=== PATIENT | female | born 1995 | race Caucasian/White ===

== ENCOUNTER 2016-07-10 02:00 | Emergency (ER) | payer OTHER ==
[2016-07-10 02:01] VITALS: BMI 22.4
[2016-07-10] MEDS ORDERED: Aluminum Hydroxide/Magnesium Hydroxide Susp (30 mL) PO STA (02:39)
[2016-07-10] MEDS ORDERED: Aluminum Hydroxide/Magnesium Hydroxide Susp (30 mL) ONE (02:44)
--- NOTE | 2016-07-10 02:52 | C.PDOC ---
History Of Present Illness <Janett Cruz - Last Filed: 07/10/16 07:03> <Cecelia Aguilar - Last Filed: 07/10/16 08:53> 20 y/o female presents to ED with complaint of generalized abdominal pain and states she feels like she has heartburn, with noted acidic taste in her mouth. Patient also reports associated nausea, with 1 episode of vomiting earlier today , and several episodes of loose stools. Patient describes that her belly "feels big". Denies fever, chills, urinary symptoms, or other complaints. Patient also complains of lower back pain. Denies trauma, fall, new weakness, new numbness, or other complaints. (MirandaviniciusConradJanett garcia) Patient currently resting comfortably, wants to be discharged home. On exam, abdomen is soft and nontender. CT scan unremarkable. Patient given Rx for pepcid and instructed to follow up with PMD/clinic in 1-2 days. She understands she should return to ED if symptoms worsen. Accession No. : [id number] Patient Name / ID : MARYANNE OLIVAS / [id number] Exam Date : 07/10/2016 06:55:46 ( Approved ) Study Comment : Sex / Age : F / 20Y Creator : tomas parham Dictator : Unruly Lindsey MD [employer] Manager : Hand Carver : Unruly Lindsey MD Approver2 : Report Date : 07/10/2016 08:34:08 My Comment : This report is currently processing and HAS NOT BEEN OFFICIALLY SIGNED BY THE PHYSICIAN - ESTIMATED TIME OF APPROVAL IS 07/10/2016 08:54. PROCEDURE: CT Abdomen and Pelvis with contrast HISTORY: diffuse Abd Pain COMPARISON: 09/17/2015 TECHNIQUE: Contrast dose: 100 mL Visipaque 320 Radiation dose: Total exam DLP = 338.27 mGy-cm. FINDINGS: LOWER THORAX: Unremarkable. LIVER: Unremarkable. No gross lesion or ductal dilatation. GALLBLADDER AND BILE DUCTS: Unremarkable. PANCREAS: Unremarkable. No gross lesion or ductal dilatation. SPLEEN: Unremarkable. ADRENALS: Unremarkable. No mass. KIDNEYS AND URETERS: Focal scar upper pole left kidney, unchanged. Nonspecific. No mass, calculus or hydronephrosis. VASCULATURE: Unremarkable. No aortic aneurysm. BOWEL: Unremarkable. No obstruction. No gross mural thickening. APPENDIX: Normal appendix. PERITONEUM: Unremarkable. No free fluid. No free air. LYMPH NODES: Unremarkable. No enlarged lymph nodes. BLADDER: Unremarkable. REPRODUCTIVE: Normal uterus BONES: No acute fracture. OTHER FINDINGS: None. IMPRESSION: Unremarkable contrast enhanced CT of the abdomen and pelvis. Incidental old cortical scar upper pole left kidney. (Cecleia Aguilar) History Per: Patient History/Exam Limitations: no limitations Onset/Duration Of Symptoms: Days Current Symptoms Are (Timing): Still Present Location Of Pain/Discomfort: Diffuse Radiation Of Pain To:: None Quality Of Discomfort: "Pain" Associated Symptoms: Vomiting, Back Pain, Other (loose stools). denies: Fever, Urinary Symptoms Recent travel outside of the [place]: No <Janett Cruz - Last Filed: 07/10/16 07:03> <Cecelia Aguilar - Last Filed: 07/10/16 08:53> Time Seen by Provider: 07/10/16 02:20 Chief Complaint (Nursing): Abdominal Pain Past Medical History Reviewed: Historical Data, Nursing Documentation, Vital Signs - Medical History PMH: Anemia Family History: States: Unknown Family Hx - Social History Hx Alcohol Use: No Hx Substance Use: No - Immunization History Hx Tetanus Toxoid Vaccination: No Hx Influenza Vaccination: Yes Hx Pneumococcal Vaccination: No <Janett Cruz - Last Filed: 07/10/16 07:03> Vital Signs: Last Vital Signs Temp 98.7 F 07/10/16 07:22 Pulse 86 07/10/16 07:22 Resp 18 07/10/16 07:22 BP 100/68 07/10/16 07:22 Pulse Ox 100 07/10/16 07:22 Review Of Systems Except As Marked, All Systems Reviewed And Found Negative. Constitutional: Negative for: Fever, Chills Gastrointestinal: Positive for: Vomiting, Abdominal Pain Genitourinary: Negative for: Dysuria Skin: Negative for: Rash <Janett Cruz - Last Filed: 07/10/16 07:03> Physical Exam - Physical Exam Appears: Non-toxic, No Acute Distress Skin: Normal Color, Warm, Dry Head: Atraumatic, Normacephalic Oral Mucosa: Moist Chest: Symmetrical Cardiovascular: Rhythm Regular Respiratory: Normal Breath Sounds, No Rales, No Rhonchi, No Wheezing Gastrointestinal/Abdominal: Soft, Tenderness (minimal epigastric), No Distention , No Guarding, No Rebound Back: No CVA Tenderness Extremity: Normal ROM, Capillary Refill (< 2 sec. ) Neurological/Psych: Oriented x3, Normal Speech, Normal Cognition <Janett Cruz - Last Filed: 07/10/16 07:03> ED Course And Treatment - Laboratory Results Result Diagrams: 07/10/16 02:58 07/10/16 02:58 O2 Sat by Pulse Oximetry: 99 (RA) Pulse Ox Interpretation: Normal Progress Note: Treated with Maalox, Zofran, and Pepcid. Labs ordered and reviewed. <Janett Cruz - Last Filed: 07/10/16 07:03> - Laboratory Results Result Diagrams: 07/10/16 02:58 07/10/16 02:58 <Cecelia Aguilar - Last Filed: 07/10/16 08:53> Disposition - Disposition Disposition Time: 07:03 <Janett Cruz - Last Filed: 07/10/16 07:03> Counseled Patient/Family Regarding: Studies Performed, Diagnosis, Need For Followup, Rx Given - Disposition Disposition Time: 08:50 - POA Present On Arrival: None <Cecelia Aguilar - Last Filed: 07/10/16 08:53> - Disposition Referrals: at [facility] [Outside] Disposition: HOME/ ROUTINE Condition: STABLE Additional Instructions: SEGUIMIENTO CON THOMAS DOCTOR / CLNICA EN 1-2 VÁSQUEZ USE MEDICAMENTOS JERAMY NECESITA EVITE LOS ALIMENTOS PICANTE / ACIDICOS DEVUELVA A LA EZIO DE EMERGENCIA SI LOS SNTOMAS EMPEORARAN Prescriptions: Famotidine [Pepcid] 20 mg PO BID PRN #20 tab PRN Reason: abdominal Instructions: Epigastric Pain (ED) Print Language: POLISH - Clinical Impression Clinical Impression: Abdominal pain, Dyspepsia - 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 - Scribe Statement The provider has reviewed the documentation as recorded by the Scribe <Janett Cruz - Last Filed: 07/10/16 07:03> <Cecelia Aguilar - Last Filed: 07/10/16 08:53> - Scribe Statement Jerman Pena Provider Scribe Attestation: All medical record entries made by the Scribe were at my direction and personally dictated by me. I have reviewed the chart and agree that the record accurately reflects my personal performance of the history, physical exam, medical decision making, and the department course for this patient. I have also personally directed, reviewed, and agree with the discharge instructions and disposition. (Janett Cruz) Physician Patient Turnover Patient Signed Over To: Cecelia Aguilar Handoff Comments: Pending Abd CT results and reevaluation <Janett Cruz - Last Filed: 07/10/16 07:03>
[2016-07-10 03:03] LABS: BASO % 0.2 % (0.0-2.0); EOS # 0.1 K/uL (0.0-0.7); EOS % 0.7 % (0.0-4.0); HEMATOCRIT 39.3 % (34.0-47.0); LYMPH % 13.9 % (20.0-40.0); MEAN CELL VOLUME 64.9 fL (81.0-99.0); MEAN CORPUSCULAR HGB CONC 30.8 g/dL (33.0-37.0); MEAN PLATELET VOLUME 9.3 fL (7.2-11.7); MONO # 1.3 K/uL (0.0-0.8); MONO % 8.5 % (0.0-10.0); RED CELL DISTRIBUTION WIDTH 14.8 % (11.5-14.5); WHITE BLOOD COUNT 14.8 K/uL (4.8-10.8)
[2016-07-10 03:08] LABS: CHLORIDE 103 mmol/L (98-107); POTASSIUM 3.7 mmol/L (3.6-5.2); SODIUM 141 mmol/L (132-148)
[2016-07-10 03:11] LABS: ALB/GLOB RATIO 1.3 (1.0-2.1); ALKALINE PHOSPHATASE 74 U/L (38-126); ALT/SGPT 28 U/L (9-52); AST/SGOT 20 U/L (14-36); BILIRUBIN,TOTAL 0.5 mg/dL (0.2-1.3); BLOOD UREA NITROGEN 16 mg/dL (7-17); CALCIUM 9.3 mg/dl (8.6-10.4); CARBON DIOXIDE 25 mmol/L (22-30); GFR AFRICAN-AMERICAN > 60; GLUCOSE,RANDOM 99 mg/dL (65-105); TOTAL PROTEIN 7.4 g/dL (6.3-8.3)
[2016-07-10 04:49] LABS: URINE BILIRUBIN NEGATIVE (NEGATIVE); URINE BLOOD NEGATIVE (NEGATIVE); URINE COLOR Straw (YELLOW); URINE GLUCOSE (UA) NORMAL (Normal); URINE KETONE NEGATIVE (NEGATIVE); URINE LEUKOCYTE ESTERASE NEG Leu/uL (Negative); URINE PROTEIN NEGATIVE (NEGATIVE); URINE UROBILINOGEN NORMAL mg/dL (0.2-1.0); WBC URINE < 1 /hpf (0-5)
[2016-07-10] MEDS ORDERED: Iohexol 240 (50 ml) PO ONE (05:13)
[2016-07-10] MEDS ORDERED: Iohexol 240 (50 ml) ONE (05:21)
[2016-07-10] MEDS ORDERED: Iodixanol 320 mg/ml 150 ml Bottle IV ONE (06:33)
[2016-07-10 07:23] VITALS: O2SAT 100
--- NOTE | 2016-07-10 08:50 | CT ---
PROCEDURE: CT Abdomen and Pelvis with contrast HISTORY: diffuse Abd Pain COMPARISON: 09/17/2015 TECHNIQUE: Contrast dose: 100 mL Visipaque 320 Radiation dose: Total exam DLP = 338.27 mGy-cm. FINDINGS: LOWER THORAX: Unremarkable. LIVER: Unremarkable. No gross lesion or ductal dilatation. GALLBLADDER AND BILE DUCTS: Unremarkable. PANCREAS: Unremarkable. No gross lesion or ductal dilatation. SPLEEN: Unremarkable. ADRENALS: Unremarkable. No mass. KIDNEYS AND URETERS: Focal scar upper pole left kidney, unchanged. Nonspecific. No mass, calculus or hydronephrosis. VASCULATURE: Unremarkable. No aortic aneurysm. BOWEL: Unremarkable. No obstruction. No gross mural thickening. APPENDIX: Normal appendix. PERITONEUM: Unremarkable. No free fluid. No free air. LYMPH NODES: Unremarkable. No enlarged lymph nodes. BLADDER: Unremarkable. REPRODUCTIVE: Normal uterus BONES: No acute fracture. OTHER FINDINGS: None. IMPRESSION: Unremarkable contrast enhanced CT of the abdomen and pelvis. Incidental old cortical scar upper pole left kidney.
[2016-07-10 08:52] VITALS: BP 99/68; PULSE 81; RESP 20; TEMP 98.6
== END 2016-07-10 09:02 | disposition home or self-care (01) ==
LOC: C.ER 02:00 → SUPCPDRO 02:00 → C.ER 09:02
DX: R10.13 Epigastric pain (principal)
CPT/HCPCS: 74177; 80053; 81001; 83690; 84703; 85025; 96374; 96375; 99285; J1885; J2405; Q9965; Q9966

== ENCOUNTER 2017-08-01 09:49 | Emergency (ER) | payer MEDICAID, OTHER ==
[2017-08-01 09:50] VITALS: BMI 22.4
--- NOTE | 2017-08-01 10:49 | C.PDOC ---
History Of Present Illness 21 y/o female with history of Gastritis presents to ED with complaints of epigastric burning pain radiating to chest associated with bad taste in mouth, worse after eating this morning. Patient states symptoms feel like prior episodes of gastritis, (diagnosed by endoscopy), and had been on Omeprazole in past until resolved. pt reports recent back pain being treated with Naproxen , stopped one week ago. At ED, patient states she has not taken any medication , but pain has decreased somewhat on its own. . Patient reports last bowel movement today and denies n/v/d, fever, dysuria, hematuria or any other complaints at this time. Time Seen by Provider: 08/01/17 10:03 Chief Complaint (Nursing): Abdominal Pain History Per: Patient History/Exam Limitations: no limitations Onset/Duration Of Symptoms: Days Current Symptoms Are (Timing): Still Present Location Of Pain/Discomfort: Epigastric Past Medical History Reviewed: Historical Data, Nursing Documentation, Vital Signs Vital Signs: Last Vital Signs Temp 98.3 F 08/01/17 17:30 Pulse 76 08/01/17 17:30 Resp 18 08/01/17 17:30 BP 107/72 08/01/17 17:30 Pulse Ox 99 08/02/17 13:51 - Medical History PMH: Anemia Surgical History: No Surg Hx Family History: States: No Known Family Hx - Social History Hx Alcohol Use: No Hx Substance Use: No - Immunization History Hx Tetanus Toxoid Vaccination: No Hx Influenza Vaccination: Yes Hx Pneumococcal Vaccination: No Review Of Systems Constitutional: Negative for: Fever, Chills Cardiovascular: Negative for: Chest Pain Respiratory: Negative for: Shortness of Breath Gastrointestinal: Positive for: Abdominal Pain. Negative for: Nausea, Vomiting , Diarrhea Genitourinary: Negative for: Dysuria Skin: Negative for: Rash Neurological: Negative for: Weakness, Numbness Physical Exam - Physical Exam Appears: Non-toxic, No Acute Distress Skin: Warm, Dry, No Rash Head: Atraumatic, Normacephalic Eye(s): bilateral: Normal Inspection Oral Mucosa: Moist Neck: Normal ROM, Supple Cardiovascular: Rhythm Regular Respiratory: Normal Breath Sounds, No Rales, No Rhonchi, No Wheezing Gastrointestinal/Abdominal: Soft, Tenderness (Epigastric and LUQ), No Guarding, No Rebound Back: No CVA Tenderness Extremity: Normal ROM, Capillary Refill (<2 seconds) Neurological/Psych: Oriented x3, Normal Speech, Normal Cognition ED Course And Treatment - Laboratory Results Result Diagrams: 08/01/17 12:18 08/01/17 11:00 O2 Sat by Pulse Oximetry: 99 (RA) Pulse Ox Interpretation: Normal Medical Decision Making Medical Decision Making: Plan: Blood work, UA ordered 1228 pm pt initially arrived with epigastric pain after eating, siimilar to gastritis in past. pt wiht tenderness in epigastric area only on initial exam. initial wbc 15.6, with trace hematuria, rest normal; possible demargination. pt given protonix and reports pain decreased; wbc redrawn and now increased to 17.6; pt with llq pain, will get ct scan to eval for intra-abdominal pathology. 454 pm pt with abdomen ct neg for pathology, noted 2 non obstructive upper pole left kidney stones. will d/c with protonix, f/u med clinic, with gi and heme/onc out pt f/u. explained to pt that wbc elevated for unclear reason and should f/u with hematologyfor further evaluation. pt understands. Disposition Counseled Patient/Family Regarding: Studies Performed, Diagnosis, Need For Followup, Rx Given - Disposition Referrals: Cyndee Lundberg MD [Staff Provider] - Yann Fagan MD [Staff Provider] - [facility] [Outside] Disposition: HOME/ ROUTINE Disposition Time: 16:57 Condition: IMPROVED Additional Instructions: Por favor, siga con mdicos clnicos, gastroenterlogos y hematlogos. Call recuento de glbulos blancos es elevado y necesita ms investigacin. Evite motrin / advil / ibuprofeno / aleve y naproxeno; no son buenos para call est blessing. [place] pantoprozole segn lo prescrito. Regrese a la chana de emergencias por cualquier sntoma peor. 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 - Scribe Statement The provider has reviewed the documentation as recorded by the Scribe Gerald Le All medical record entries made by the Shirinibamberly were at my direction and personally dictated by me. I have reviewed the chart and agree that the record accurately reflects my personal performance of the history, physical exam, medical decision making, and the department course for this patient. I have also personally directed, reviewed, and agree with the discharge instructions and disposition.
[2017-08-01 11:06] LABS: BASO % 0.2 % (0.0-2.0); EOS # 0.1 K/uL (0.0-0.7); EOS % 0.4 % (0.0-4.0); LYMPH # 2.4 K/uL (1.0-4.3); LYMPH % 15.3 % (20.0-40.0); MEAN CELL VOLUME 64.7 fL (81.0-99.0); MEAN CORPUSCULAR HEMOGLOBIN 20.8 pg (27.0-31.0); MEAN CORPUSCULAR HGB CONC 32.1 g/dL (33.0-37.0); MEAN PLATELET VOLUME 8.3 fL (7.2-11.7); MONO # 1.1 K/uL (0.0-0.8); MONO % 7.2 % (0.0-10.0); NEUT % 76.9 % (50.0-75.0); RBC 5.78 Mil/uL (3.80-5.20); RED CELL DISTRIBUTION WIDTH 15.4 % (11.5-14.5); WHITE BLOOD COUNT 15.6 K/uL (4.8-10.8)
[2017-08-01] MEDS ORDERED: Pantoprazole 40 mg EC Tab PO STA (11:16)
[2017-08-01 11:20] LABS: ALB/GLOB RATIO 1.1 (1.0-2.1); ALT/SGPT 18 U/L (9-52); AST/SGOT 20 U/L (14-36); BLOOD UREA NITROGEN 16 mg/dL (7-17); GFR AFRICAN-AMERICAN > 60; GFR NON-AFRICAN AMERICAN > 60; LIPASE 91 U/L (23-300)
[2017-08-01] MEDS ORDERED: Pantoprazole 40 mg EC Tab PO ONE (11:24)
[2017-08-01 11:26] LABS: SQUAMOUS EPITHIAL 9 /hpf (0-5); URINE BACTERIA RARE (<OCC); URINE BILIRUBIN NEGATIVE (NEGATIVE); URINE BLOOD 2+ (NEGATIVE); URINE CLARITY Hazy (Clear); URINE COLOR Yellow (YELLOW); URINE GLUCOSE (UA) NORMAL (Normal); URINE LEUKOCYTE ESTERASE NEG Leu/uL (Negative); URINE PROTEIN NEGATIVE (NEGATIVE); URINE UROBILINOGEN NORMAL mg/dL (0.2-1.0)
[2017-08-01 12:22] LABS: BASO % 0.2 % (0.0-2.0); EOS # 0.1 K/uL (0.0-0.7); EOS % 0.4 % (0.0-4.0); HEMOGLOBIN 12.1 g/dL (11.0-16.0); LYMPH # 2.5 K/uL (1.0-4.3); LYMPH % 13.9 % (20.0-40.0); MEAN CELL VOLUME 65.3 fL (81.0-99.0); MEAN CORPUSCULAR HEMOGLOBIN 21.1 pg (27.0-31.0); MEAN CORPUSCULAR HGB CONC 32.3 g/dL (33.0-37.0); MEAN PLATELET VOLUME 8.5 fL (7.2-11.7); MONO % 5.8 % (0.0-10.0); NEUT # 14.1 K/uL (1.8-7.0); NEUT % 79.7 % (50.0-75.0); NRBC % 0.1 % (0.0-2.0); RBC 5.74 Mil/uL (3.80-5.20); RED CELL DISTRIBUTION WIDTH 15.9 % (11.5-14.5); WHITE BLOOD COUNT 17.6 K/uL (4.8-10.8)
[2017-08-01] MEDS ORDERED: Sodium Chloride 0.9% 1,000 ML IV ONE (12:33)
[2017-08-01] MEDS ORDERED: Sodium Chloride 0.9% 1,000 ML ONE (12:58)
[2017-08-01] MEDS ORDERED: Iohexol 240 (50 ml) PO ONE (14:07)
[2017-08-01] MEDS ORDERED: Iohexol 240 (50 ml) ONE (14:22)
[2017-08-01] MEDS ORDERED: Iodixanol 320 MG/ML 100 ML BOTTLE IV ONE (15:52)
[2017-08-01 16:29] VITALS: RESP 18
--- NOTE | 2017-08-01 16:45 | CT ---
PROCEDURE: CT Abdomen and Pelvis with contrast HISTORY: lower ab pain, leucocytosis COMPARISON: None. TECHNIQUE: Contrast dose: 459.17 Radiation dose: Total exam DLP = 459.17 mGy-cm. This CT exam was performed using one or more of the following dose reduction techniques: Automated exposure control, adjustment of the mA and/or kV according to patient size, and/or use of iterative reconstruction technique. FINDINGS: LOWER THORAX: Unremarkable. LIVER: Unremarkable. No gross lesion or ductal dilatation. GALLBLADDER AND BILE DUCTS: Unremarkable. PANCREAS: Unremarkable. No gross lesion or ductal dilatation. SPLEEN: Unremarkable. ADRENALS: Unremarkable. No mass. KIDNEYS AND URETERS: 2 mm nonobstructing left upper pole renal calculus. No renal mass or hydronephrosis. VASCULATURE: Unremarkable. No aortic aneurysm. BOWEL: Unremarkable. No obstruction. No gross mural thickening. APPENDIX: Normal appendix. PERITONEUM: Trace fluid in cul-de-sac. LYMPH NODES: Unremarkable. No enlarged lymph nodes. BLADDER: Unremarkable. REPRODUCTIVE: Unremarkable utero BONES: No acute fracture. OTHER FINDINGS: None. IMPRESSION: 2 mm nonobstructing left upper pole renal calculus. Otherwise unremarkable examination
[2017-08-01 17:36] VITALS: BP 107/72; PULSE 76; TEMP 98.3
[2017-08-02 13:50] VITALS: O2SAT 99
== END 2017-08-01 17:38 | disposition home or self-care (01) ==
LOC: C.ER 09:49
DX: K21.9 Gastro-esophageal reflux disease without esophagitis (principal); D72.829 Elevated white blood cell count, unspecified
CPT/HCPCS: 74177; 80053; 81001; 83690; 85025; 96360; 99285; J7040; Q9966; Q9967